=== PATIENT | female | born 1990 ===

== ENCOUNTER 2016-04-13 10:27 | Day surgery (SDC) | payer OTHER ==
[~2016-04-13] VITALS: Ht 167.6 cm; Wt 79.8 kg
[~2016-04-13 10:27] MED LIST: PROAIR HFA8.5 GM IH
[2016-04-13 10:44] VITALS: BP 115/74
[2016-04-13 13:00] VITALS: BP 115/73
[2016-04-13 13:40] VITALS: BP 127/84
[2016-04-13 16:39] LABS: INTERNAL CONTROL VALID? YES
== END 2016-04-13 13:53 | disposition home or self-care (01) ==
LOC: SDC 10:27
PROVIDERS: Podiatrist Foot & Ankle Surgery
PROC: 0QPN04Z Removal of Internal Fixation Device from Right Metatarsal, Open Approach (ICD-10-PCS; principal; 2016-04-13)
DX: Z47.2 Encounter for removal of internal fixation device (principal); J45.909 Unspecified asthma, uncomplicated; Z79.51 Long term (current) use of inhaled steroids
CPT/HCPCS: 73630; 84703; J0131; J1100; J1885; J2250; J2405; J3010; S0020